=== PATIENT | female | born 1980 | race Caucasian/White ===

== ENCOUNTER 2016-06-08 18:12 | Inpatient (IN) | payer OTHER ==
[2016-06-08] MEDS ORDERED: LIDOCAINE 1% 30 ML SDV SC PRN (18:37)
[2016-06-08] MEDS ORDERED: EPSOM SALT 454 GM TP PRN (18:37)
[2016-06-08] MEDS ORDERED: LR 1,000 ML IV PRN (18:37)
[2016-06-08] MEDS ORDERED: MINERAL OIL 60 ML OIL TP PRN (18:37)
[2016-06-08] MEDS ORDERED: TERBUTALINE SULFATE 1 MG/ML VIAL IV PRN (18:37)
[2016-06-08] MEDS ORDERED: OXYTOCIN/RINGERS LACTATE 1,000 ML IV PRN (18:37)
[2016-06-08] MEDS ORDERED: CALCIUM CARBONATE 500 MG CHEWABLE TAB PO PRN (21:33)
[2016-06-08] MEDS ORDERED: OXYTOCIN/RINGERS LACTATE 500 ML IV SCH (22:00)
[2016-06-08 22:35] LABS: % IMMATURE GRANULYOCYTES 0.5 % (0.0-1.1); ABSOLUTE IMMATURE GRANULOCYTES 0.06 10^3/uL (0.00-0.10); ADD DIFF? NO; ADD MORPH? NO; ADD SCAN? NO; ATYPICAL LYMPHOCYTE FLAG 0 (0-99); FRAGMENT RBC FLAG 0 (0-99); HEMATOCRIT 37.6 % (38.0-47.0); HEMOGLOBIN 13.3 g/dL (12.6-16.3); LEFT SHIFT FLG 0 (0-99); LIPEMIA HEMOLYSIS FLAG 90 (0-99); MEAN CELL HEMOGLOBIN 32.4 pg (27.9-34.1); MEAN CELL HEMOGLOBIN CONCENTR. 35.4 g/dL (32.4-36.7); MEAN CELL VOLUME 91.7 fL (81.5-99.8); MEAN PLATELET VOLUME 10.8 fL (8.7-11.7); PLATELET CLUMPS FLAG 0 (0-99); PLATELET COUNT 211 10^3/uL (150-400); RED CELL DISTRIBUTION WIDTH 12.7 % (11.5-15.2)
[2016-06-08] MEDS ORDERED: ONDANSETRON 4 MG/2 ML VIAL IVP PRN (22:59)
[2016-06-08] MEDS ORDERED: ONDANSETRON 4 MG/2 ML VIAL ONE (23:04)
[2016-06-08] MEDS ORDERED: AMMONIA AROMATIC 1 EACH AMP IH ONE (23:29)
[2016-06-08] MEDS ORDERED: TERBUTALINE SULFATE 1 MG/ML VIAL ONE (23:29)
[2016-06-08] MEDS ORDERED: MISOPROSTOL 200 MCG TAB ONE (23:29)
[2016-06-08] MEDS ORDERED: LIDOCAINE 1% 30 ML SDV ONE (23:30)
[2016-06-08] MEDS ORDERED: OXYTOCIN 10 UNIT/ML VIAL ONE (23:30)
--- NOTE | 2016-06-08 23:43 | GHP ---
[f rep st] PREOP HISTORY AND PHYSICAL DATE OF ADMISSION: 06/08/2016 CHIEF COMPLAINT: Rupture of membranes and irregular contractions. HISTORY OF PRESENT ILLNESS: The patient is a 36-year-old, G3, P1-0-1-1, female who is at 39 and 2/7 weeks gestational age dated by an LMP and an 8-week ultrasound, who presents to labor and delivery with complaints with loss of fluid around 2 p.m. She presented around 6:30 p.m. and had not begun to have any regular contractions. Recommended beginning Pitocin to prevent chorioamnionitis which the patient agreed to start at 9 p.m. PAST MEDICAL HISTORY: Negative. PAST SURGICAL HISTORY: Negative. ALLERGIES: She has no known drug allergies. MEDICATIONS: She is taking a vitamin daily. FAMILY HISTORY: Noncontributory. 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 REVIEW OF SYSTEMS: Positive for loss of fluid and irregular contractions. PHYSICAL EXAMINATION: VITAL SIGNS: Her blood pressure is 114/70, pulse 73, temperature is 37.0. GENERAL: She is uncomfortable. ABDOMEN/PELVIC: Her abdomen is gravid and nontender. Fetus is vertex. By exam she is 2, 80 and -2 station. Supriya about every 5 minutes. heart tones in the 130s with moderate variability and positive accelerations. LABS: Significant for B positive, antibody screen negative. Rubella immune. RPR nonreactive. Hepatitis B surface antigen negative. HIV negative. Gonorrhea and chlamydia negative. A 1-hour Glucola is 135, a 3-hour Glucola was 79, 179, 146 and 103. She is GBS negative on . ASSESSMENT AND PLAN: This is a 36-year-old, G3, P1, female who is at 39-2/7 weeks gestation with PROM. well being is reassuring. GBS is negative. Recommended Pitocin to prevent chorioamnionitis which the patient has agreed to , and an expected . /[id number]/MODL MTDD
[2016-06-09] MEDS ORDERED: BUPIVACAINE 0.25% 30 ML SDV MISC ONE (00:03)
[2016-06-09] MEDS ORDERED: fentaNYL 100 MCG/2 ML INJ MISC ONE (00:03)
[2016-06-09] MEDS ORDERED: fentaNYL 2MCG/ML/BUP 0.1% RTU 100 ML EP ONE (00:03)
[2016-06-09] MEDS ORDERED: PHENYLEPHRINE HCL 100 MCG/ML SYR ONE (00:07)
[2016-06-09] MEDS ORDERED: METHYLERGONOVINE MAL 0.2 MG/ML INJ ONE (00:43)
[2016-06-09] MEDS ORDERED: HEMABATE 250 MCG/1 ML AMP IM ONE ×3 (00:49→04:10)
[2016-06-09] MEDS ORDERED: HYDROCORTISONE 0.5% CREAM TP PRN (01:10)
[2016-06-09] MEDS ORDERED: HYDROCODONE/APAP 5/325 TAB PO PRN (01:10)
[2016-06-09] MEDS ORDERED: SIMETHICONE 80 MG TAB CHEW PO PRN (01:10)
--- NOTE | 2016-06-09 01:10 | OBPROC ---
- Labor and Delivery Onset of Contractions Date: 06/08/16 Onset of Contractions Time: 21:00 Onset of Contractions Type: Augmented Rupture of Membranes Date: 06/08/16 Rupture of Membranes Time: 14:00 Rupture of Membranes Type: Spontaneous Amniotic Fluid Color: Clear Dilation Complete Time: 00:30 Delivery Type: Spontaneous Placenta Delivery Date: 06/09/16 Placenta Delivery Time: 00:42 EBL: 500 ml Complications: Post Hemorrhage (requiring methergine, cytotec, hemobate, uterine atony likely due to fast progression of labor) - Medications Labor Augmentation/Induction Meds Used: Pitocin Labor Augmentation/Induction Indication: Other (Specify) (PROM) - [place] Info Infant A Delivery Date: 06/09/16 Delivery Time: 00:40 Sex of Infant: Female Score (1 Min): 8 Score (5 Min): 9
[2016-06-09] MEDS ORDERED: METHYLERGONOVINE MAL 0.2 MG/ML INJ IM ONE (01:11)
[2016-06-09] MEDS ORDERED: MISOPROSTOL 200 MCG TAB PR ONE (01:11)
[2016-06-09] MEDS ORDERED: DIPHENOXYLATE/ATROPINE LOMOTIL 1 TAB PO PRN (01:12)
[2016-06-09] MEDS: IBUPROFEN 600 MG TAB PO PRN ×3 (01:28→19:39)
[2016-06-09] MEDS ORDERED: MISOPROSTOL 200 MCG TAB ONE (04:10)
[2016-06-09] MEDS: DOCUSATE SODIUM 100 MG CAP PO PRN ×2 (11:10→19:39)
[2016-06-10] MEDS: IBUPROFEN 600 MG TAB PO PRN ×2 (01:26→08:26)
--- NOTE | 2016-06-10 07:49 | SOAPPROG ---
SOAP Progress Note Assessment/Plan: Assessment: PPD#1, s/p doing well S/p PPH resolved with uterotonics. Bleeding appropriate now Pain controlled with Motrin Rh pos, Rub imm, s/p tdap and flu Plan: Stable for discharge home today Routine precautions reviewed Follow-up in 4 weeks for wellness visit and 6 weeks for visit 06/10/16 07:46 Subjective: Minimal sleep, but overall feeling well. Hoping milk will come in today, may need donor milk this morning. Bleeding is minimal. Pain controlled with motrin. Ambulating, voiding, eating normally Objective: Vital Signs Temp Pulse Resp BP Pulse Ox 37.1 C 71 18 105/63 95 06/09/16 20:00 06/09/16 20:00 06/09/16 20:00 06/09/16 20:00 06/09/16 20:00 Laboratory Results 06/09/16 14:10 06/09/16 06/10/16 06/11/16 05:59 05:59 05:59 Output Total 500 Balance -500 Gen: NAD, ambulatory Abd: soft, nontender, uterus firm below umbilicus Ext: 1+ edema to ankles - Pending Discharge Pending Discharge Within 24 Hours: Yes Pending Discharge Date: 06/11/16 Pending Discharge Time: 11:00 ICD10 Worksheet Patient Problems: Problems Problem Status Diagnosed Vaginal delivery Acute Premature rupture of membranes Acute
[2016-06-10] MEDS: DOCUSATE SODIUM 100 MG CAP PO PRN (08:26)
[2016-06-10 08:35] VITALS: BP 89/61; PULSE 61; RESP 12; TEMP 96.5; O2SAT 94
== END 2016-06-10 13:45 | disposition home or self-care (01) | DRG 774 ==
LOC: FLD 18:12 → FOB 06-09 12:35
PROVIDERS: ADMIT Obstetrics & Gynecology; ATTEND Obstetrics & Gynecology
PROC: 3E033VJ Introduction of Other Hormone into Peripheral Vein, Percutaneous Approach (ICD-10-PCS; principal; 2016-06-09)
PROC: 10E0XZZ Delivery of Products of Conception, External Approach (ICD-10-PCS; principal; 2016-06-09)
DX: O72.1 Other immediate postpartum hemorrhage (principal); O09.523 Supervision of elderly multigravida, third trimester; Z3A.39 39 weeks gestation of pregnancy; Z37.0 Single live birth
CPT/HCPCS: J2210; J2370; J2405; J2590; J3010; J3105